=== PATIENT | female | born 1955 | race Caucasian/White ===

== ENCOUNTER 2021-06-10 15:05 | Outpatient (CLI) | payer MEDICARE, OTHER | END 2021-06-10 23:59 | disposition home or self-care (01) | LOC: CFH 15:05 | PROVIDERS: ATTEND Obstetrics & Gynecology Gynecology | DX: Z12.31 Encounter for screening mammogram for malignant neoplasm of breast (principal) | CPT/HCPCS: 77063; 77067 ==